=== PATIENT | male | born 1935 | race Caucasian/White ===

== ENCOUNTER 2021-09-04 13:03 | Outpatient (CLI) | payer MEDICARE, BC | END 2021-09-04 13:04 | disposition home or self-care (01) | LOC: CSHMRI 13:03 | PROVIDERS: ATTEND Anesthesiology Pain Medicine | DX: M48.062 Spinal stenosis, lumbar region with neurogenic claudication (principal); M48.00 Spinal stenosis, site unspecified; G95.89 Other specified diseases of spinal cord; M54.16 Radiculopathy, lumbar region; Z98.890 Other specified postprocedural states; M47.816 Spondylosis without myelopathy or radiculopathy, lumbar region | CPT/HCPCS: 72148 ==

== ENCOUNTER 2022-04-14 07:23 | Observation (INO) | payer MEDICARE, BC ==
[2022-04-14 08:20] LABS: #Basophils 0.1 10x3/uL (0.0-0.2); #Eosinphils 0.4 10x3/uL (0.0-0.5); #Monocytes 0.5 10x3/uL (0.0-1.1); #Neutrophils 3.1 10x3/uL (1.5-8.4); %Eosinophils 8.6 % (0.0-6.0); %Lymphocytes 21.1 % (18.0-47.0); %Neutrophils 60.1 % (40.0-75.0); Hemoglobin 14.9 g/dL (13.5-17.5); Mean Corpuscular Hemoglobin 34.2 pg (27.0-33.0); Mean Corpuscular Volume 97.7 fl (81.2-95.1); Mean Platelet Volume 11.1 fl (7.4-10.4); Platelet Count 217 10x3/uL (150-450); RBC Distribution Width 13.2 % (11.5-14.5); Red Blood Cell (RBC) Count 4.36 10x6/uL (4.32-5.72); White Blood Cell (WBC) Count 5.1 10x3/uL (3.5-10.5)
[2022-04-14 08:26] LABS: ALT (SGPT) 11 U/L (8-55); AST (SGOT) 24 U/L (5-34); Alkaline Phosphatase 68 U/L (40-110); Anion Gap 17 mmol/L (10-20); BUN (Urea Nitrogen) 19 mg/dL (8.4-25.7); Bilirubin, Total 0.6 mg/dL (0.2-1.2); Calc. Creatinine Clearance 0 mL/min (70-130); Calcium 8.8 mg/dL (7.8-10.44); Carbon Dioxide 23 mmol/L (23-31); Chloride 107 mmol/L (98-107); Estimated GFR 63; Globulin 2.7 g/dL (2.4-3.5); Glucose 175 mg/dL (83-110); Potassium 3.9 mmol/L (3.5-5.1); Protein, Total 6.7 g/dL (5.8-8.1); Sodium 143 mmol/L (136-145)
[2022-04-14] MEDS ORDERED: Aspirin Chewable 81 MG TAB ONE (08:33)
[2022-04-14] MEDS ORDERED: Ondansetron PF 4 MG/2 ML Vial IVP PRN (11:51)
[2022-04-14] MEDS ORDERED: Ondansetron ODT 4 MG TAB PO PRN (11:51)
[2022-04-14] MEDS ORDERED: Acetaminophen 650 MG Suppository PR PRN (11:51)
[2022-04-14] MEDS ORDERED: Acetaminophen 325 MG TAB PO PRN (11:51)
[2022-04-14] MEDS ORDERED: Nitroglycerin 0.4 MG TAB (25 Tab Bottle) SL PRN (11:51)
[2022-04-14 12:14] LABS: Magnesium 2.2 mg/dL (1.6-2.6)
[2022-04-14 14:08] LABS: Troponin I 0.014 ng/mL (< 0.028)
[2022-04-14 14:28] VITALS: BMI 23.2
[2022-04-14] MEDS ORDERED: Docusate 100 MG CAP PO PRN (18:18)
[2022-04-14] MEDS: Dronedarone HCl 400 MG TAB PO SCH (18:19)
[2022-04-14] MEDS ORDERED: Donepezil HCl 5 MG TAB PO SCH (21:00)
[2022-04-14] MEDS ORDERED: Apixaban 5 MG TAB PO SCH (21:00)
[2022-04-14] MEDS ORDERED: Atorvastatin Calcium 20 MG TAB PO SCH (21:00)
[2022-04-14] MEDS ORDERED: Enoxaparin Sodium 40 MG/0.4 ML SYRINGE SC SCH (21:00)
[2022-04-14] MEDS ORDERED: Latanoprost 0.005% Ophth Soln 2.5 ml Bottle EA EYE SCH (21:00)
[2022-04-14] MEDS: Cephalexin 500 MG CAP PO SCH (21:29)
[2022-04-15 04:19] LABS: #Basophils 0.1 10x3/uL (0.0-0.2); #Eosinphils 0.5 10x3/uL (0.0-0.5); #Monocytes 0.7 10x3/uL (0.0-1.1); #Neutrophils 2.8 10x3/uL (1.5-8.4); %Eosinophils 8.9 % (0.0-6.0); %Lymphocytes 29.3 % (18.0-47.0); %Monocytes 12.2 % (0.0-10.0); %Neutrophils 48.4 % (40.0-75.0); Hemoglobin 13.8 g/dL (13.5-17.5); Mean Corpuscular HGB CONC 34.6 g/dL (32.0-36.0); Mean Corpuscular Volume 98.3 fl (81.2-95.1); Mean Platelet Volume 9.6 fl (7.4-10.4); Platelet Count 187 10x3/uL (150-450); RBC Distribution Width 13.2 % (11.5-14.5); Red Blood Cell (RBC) Count 4.06 10x6/uL (4.32-5.72); White Blood Cell (WBC) Count 5.8 10x3/uL (3.5-10.5)
[2022-04-15 04:35] LABS: Anion Gap 12 mmol/L (10-20); BUN (Urea Nitrogen) 18 mg/dL (8.4-25.7); Calc. Creatinine Clearance 64 mL/min (70-130); Calcium 8.4 mg/dL (7.8-10.44); Carbon Dioxide 26 mmol/L (23-31); Cardiac Risk 2.5 (Less than 4.5); Chloride 109 mmol/L (98-107); Cholesterol 88 mg/dl (< 200 Desired); Estimated GFR 83; Glucose 86 mg/dL (83-110); HDL Cholesterol 35 mg/dL (>60 Neg Risk); LDL Cholesterol, Calculated 39 mg/dL; Potassium 3.9 mmol/L (3.5-5.1); Sodium 143 mmol/L (136-145); Triglycerides 69 mg/dL (Less than 150)
[2022-04-15 07:31] LABS: SARS-CoV-2 NAA Rapid Test Not Detected (NotDetected)
[2022-04-15] MEDS ORDERED: Aspirin Chewable 81 MG TAB PO SCH (09:00)
[2022-04-15] MEDS ORDERED: Aspirin 325 mg Enteric Coated Tablet PO SCH (09:00)
[2022-04-15] MEDS ORDERED: Lisinopril 10 MG TAB PO SCH ×2 (09:00)
[2022-04-15] MEDS: Cephalexin 500 MG CAP PO SCH (10:02)
[2022-04-15] MEDS: Dronedarone HCl 400 MG TAB PO SCH (10:03)
[2022-04-15 15:23] VITALS: BP 124/66; TEMP 97.8
== END 2022-04-15 15:30 | disposition home or self-care (01) ==
LOC: CSHERS 07:23 → CSHTELE 13:51
PROVIDERS: ADMIT Family Medicine; ATTEND Family Medicine
DX: R07.9 Chest pain, unspecified (principal); I48.0 Paroxysmal atrial fibrillation; I44.0 Atrioventricular block, first degree; I48.4 Atypical atrial flutter; I25.10 Atherosclerotic heart disease of native coronary artery without angina pectoris; I10 Essential (primary) hypertension; R78.5 Finding of other psychotropic drug in blood; I35.1 Nonrheumatic aortic (valve) insufficiency; H40.9 Unspecified glaucoma; F03.90 Unspecified dementia, unspecified severity, without behavioral disturbance, psychotic disturbance, mood disturbance, and anxiety; M19.90 Unspecified osteoarthritis, unspecified site; S69.92XA Unspecified injury of left wrist, hand and finger(s), initial encounter; Z20.822 Contact with and (suspected) exposure to COVID-19; Z79.82 Long term (current) use of aspirin; Z79.899 Other long term (current) drug therapy; Z95.5 Presence of coronary angioplasty implant and graft; Z98.1 Arthrodesis status; Z98.890 Other specified postprocedural states; W27.0XXA Contact with workbench tool, initial encounter
CPT/HCPCS: 71045; 80048; 80061; 83735; 83880; 84484 ×2; 85025; 93005; 93306; 94760; 96372 ×2; 97139; 99285; G0378 ×3; U0002; 36415; 80053; 84443; J1650